=== PATIENT | male | born 1965 | race Two or more races ===

== ENCOUNTER 2019-05-25 09:59 | Outpatient (CLI) | payer MEDICAID ==
[~2019-05-25] VITALS: Ht 165.1 cm; Wt 70.8 kg
[2019-05-25 14:13] VITALS: BP 124/81
[2019-05-25] MEDS ORDERED: OMEPRAZOLE40 M1 ORAL (14:13)
--- NOTE | 2019-05-26 22:16 | Consultation ---
DATE OF CONSULTATION: 05/25/2019 CONSULTING PHYSICIAN: Sean Houston M.D. CHIEF COMPLAINT: Chronic GERD, abdominal pain, need for screening colonoscopy, complained of bloating, weight loss. PAST MEDICAL HISTORY: 1. Bronchitis. 2. Questionable COPD. 3. Diverticulosis. PAST SURGICAL HISTORY: None. MEDICATIONS: Omeprazole. FAMILY HISTORY: No family history of GI malignancies. SOCIAL HISTORY: The patient drinks daily and smokes weed almost daily basis. ALLERGIES: No known drug allergies. REVIEW OF SYSTEMS: Positive for GERD, bloating, weight loss, recent flu-like symptoms. PHYSICAL EXAMINATION: VITAL SIGNS: Temperature 99.6, blood pressure is 124/81, pulse 71, respirations 20. HEENT: Normocephalic and atraumatic. Sclerae anicteric. NECK: Supple. No evidence of obvious lymphadenopathy. CARDIOVASCULAR: Regular rate and rhythm. Plus S1 and S2. No obvious murmur. LUNGS: Clear to auscultation bilaterally. ABDOMEN: Positive bowel sounds. Soft and nontender. No rebound. No guarding. No peritoneal sign. EXTREMITIES: No cyanosis. No clubbing. No edema. ASSESSMENT AND PLAN: This is a 53-year-old male, who has complained of chronic GERD, also need for screening colonoscopy. He never had a full colonoscopy before. The patient was given instruction for the colonoscopy and endoscopy. Risks and benefits of procedure were explained to him. He agreed, so we are pending authorization. Meanwhile, the patient was complaining of bronchitis symptoms for which he stated he usually takes antibiotics. He was given the prescription for Z-Geoff. Sean Houston M.D. DR: ERICK JOB#: [id number] CC:
== END 2019-05-25 12:00 | disposition home or self-care (01) ==
LOC: PAN 09:59
DX: K21.9 Gastro-esophageal reflux disease without esophagitis (principal); R10.9 Unspecified abdominal pain; R14.0 Abdominal distension (gaseous); R63.4 Abnormal weight loss; Z68.26 Body mass index [BMI] 26.0-26.9, adult; K57.90 Diverticulosis of intestine, part unspecified, without perforation or abscess without bleeding
CPT/HCPCS: G0463

== ENCOUNTER 2019-07-14 14:49 | Outpatient (CLI) | payer MEDICAID ==
[2019-07-14 14:13] VITALS: BP 129/86
[~2019-07-14 14:49] MED LIST: OMEPRAZOLE40 M1 ORAL
--- NOTE | 2019-07-14 15:14 | General Progress Note ---
Assessment/Plan Assessment/Plan: gastritis Hiatal hernia diverticulosis ppi baclofen RTC prn may need surg Subjective ROS Limited/Unobtainable: No Allergies: Coded Allergies: No Known Allergies (Unverified , 05/25/19) Objective General Appearance: alert EENT: normal ENT inspection Neck: supple Cardiovascular: normal rate Respiratory/Chest: decreased breath sounds Abdomen: normal bowel sounds, non tender, soft Extremities: non-tender Sean Houston MD Jul 14, 2019 15:14
== END 2019-07-14 15:41 | disposition home or self-care (01) ==
LOC: PAN 14:49
DX: K29.70 Gastritis, unspecified, without bleeding (principal); K44.9 Diaphragmatic hernia without obstruction or gangrene; K57.90 Diverticulosis of intestine, part unspecified, without perforation or abscess without bleeding
CPT/HCPCS: 99212

== ENCOUNTER 2019-08-16 14:47 | Outpatient (CLI) | payer MEDICAID ==
--- NOTE | 2019-08-16 15:04 | General Progress Note ---
Assessment/Plan Assessment/Plan: Progress Note date and time: 07/14/19 1514 Assessment/Plan Assessment/Plan: gastritis Hiatal hernia diverticulosis ppi>> will increase to BID baclofen RTC prn may need surg Subjective ROS Limited/Unobtainable: Yes Allergies: Coded Allergies: No Known Allergies (Unverified , 05/25/19) Objective General Appearance: alert EENT: normal ENT inspection Neck: supple Cardiovascular: normal rate Respiratory/Chest: decreased breath sounds Abdomen: normal bowel sounds, non tender, soft Extremities: non-tender Sean Houston MD Aug 16, 2019 15:04
[2019-08-16 15:50] VITALS: BP 122/77
[2019-08-16] MEDS ORDERED: BACLOFEN10 MG ORAL (16:00)
== END 2019-08-16 16:47 | disposition home or self-care (01) ==
LOC: PAN 14:47
DX: K29.70 Gastritis, unspecified, without bleeding (principal); K44.9 Diaphragmatic hernia without obstruction or gangrene; K57.90 Diverticulosis of intestine, part unspecified, without perforation or abscess without bleeding

== ENCOUNTER 2020-01-18 09:59 | Outpatient (CLI) | payer MEDICAID ==
[~2020-01-18 09:59] MED LIST changes: +BACLOFEN10 MG ORAL
[2020-01-18 14:43] VITALS: BP 106/75
--- NOTE | 2020-01-18 16:00 | Progress Note ---
DATE: 01/18/2020 CHIEF COMPLAINT: GERD. SUBJECTIVE: Patient still complains of GERD. PHYSICAL EXAMINATION: VITAL SIGNS: Temperature 98, blood pressure is 106/75, pulse 75, respirations 20. HEENT: Normocephalic and atraumatic. Sclerae are anicteric. NECK: Supple. No evidence of obvious lymphadenopathy. CARDIOVASCULAR: Regular rate and rhythm. Plus S1-S2. LUNGS: Clear to auscultation bilaterally. ABDOMEN: Positive bowel sounds. Soft, nontender. No rebound. No guarding. No peritoneal sign. EXTREMITIES: No cyanosis. No clubbing. No edema. ASSESSMENT AND PLAN: This is a 54-year-old male with chronic GERD, had an endoscopy showed evidence of 5 cm hiatal hernia. Patient is currently taking Protonix twice a day, baclofen twice a day. He said he had significant improvement, but not completely resolved and he is here to see what are the other options. We recommend the patient to be started on Carafate 1 g twice a day added to the current regimen. Patient to be seen by surgeon for possible hernia repair if he had persistent symptoms. Meanwhile, patient was also complained of constipation. MiraLAX was added to his regimen. Sean Houston M.D. DR: ERICK JOB#: [id number] CC:
== END 2020-01-18 11:59 | disposition home or self-care (01) ==
LOC: PAN 09:59
DX: K21.9 Gastro-esophageal reflux disease without esophagitis (principal); K44.9 Diaphragmatic hernia without obstruction or gangrene; K59.00 Constipation, unspecified
CPT/HCPCS: 99212

== ENCOUNTER 2020-02-02 13:41 | Outpatient (CLI) | payer MEDICAID ==
[2020-02-02 15:40] VITALS: BP 116/72
[2020-02-02] MEDS ORDERED: CARAFATE1 G1 ORAL (15:41)
[2020-02-02] MEDS ORDERED: MIRALAX17 G2 ORAL (15:41)
--- NOTE | 2020-02-02 20:00 | Progress Note ---
DATE: 02/02/2020 CHIEF COMPLAINT: Dysphagia. PHYSICAL EXAMINATION: VITAL SIGNS: Temperature 98.8, blood pressure is 110/72, pulse rate 60, respirations 20. HEENT: Normocephalic, atraumatic. Sclerae anicteric. NECK: Supple. No evidence of obvious lymphadenopathy. CARDIOVASCULAR: Regular rate and rhythm. Plus S1, S2. LUNGS: Clear to auscultation bilaterally. ABDOMEN: Positive bowel sounds. Soft, nontender. No rebound. No guarding. No peritoneal sign. EXTREMITIES: No cyanosis. No clubbing. No edema. ASSESSMENT AND PLAN: This is a 54-year-old male with past medical history of hiatal hernia 5 cm in length, currently on PPI twice a day, baclofen twice a day, and Carafate. Apparently, he had one episode of getting stuck in his throat. Now, he is very concerned. He wants to have another endoscopy because he is still having feeling that something is stuck in his throat and he is still having difficulty with swallowing. Plan, continue current medication. We are going to try to get authorization for repeat endoscopy. If the patient continues to be symptomatic despite of above regimen, might need to be evaluated by Surgery for hiatal hernia repair. Sean Houston M.D. DR: ERICK JOB#: [id number] CC:
== END 2020-02-02 15:41 | disposition home or self-care (01) ==
LOC: PAN 13:41
DX: R13.10 Dysphagia, unspecified (principal); Z79.899 Other long term (current) drug therapy; R09.89 Other specified symptoms and signs involving the circulatory and respiratory systems
CPT/HCPCS: 99212

== ENCOUNTER 2020-04-13 13:38 | Outpatient (CLI) | payer MEDICAID ==
[~2020-04-13 13:38] MED LIST changes: +CARAFATE1 G1 ORAL; +MIRALAX17 G2 ORAL
--- NOTE | 2020-04-14 14:50 | General Progress Note ---
Subjective ROS Limited/Unobtainable: Yes Allergies: Coded Allergies: No Known Allergies (Unverified , 05/25/19) Objective General Appearance: alert EENT: normal ENT inspection Neck: supple Cardiovascular: normal rate Respiratory/Chest: decreased breath sounds Abdomen: normal bowel sounds, non tender, soft Extremities: non-tender Assessment/Plan Assessment/Plan: GERD s/p EGD gastritis cont ppi and baclofen RTC prn Sean Houston MD Apr 14, 2020 14:50
== END 2020-04-13 15:38 | disposition home or self-care (01) ==
LOC: PAN 13:38
DX: K21.9 Gastro-esophageal reflux disease without esophagitis (principal); K29.70 Gastritis, unspecified, without bleeding
CPT/HCPCS: 99212